=== PATIENT | female | born 1980 | race African-American/Black ===

== ENCOUNTER 2018-06-29 17:08 | Emergency (ER) | payer MEDICAID ==
[~2018-06-29] VITALS: Ht 167.6 cm; Wt 91.0 kg
[2018-06-29 17:21] VITALS: BP 122/74
== END 2018-06-30 | disposition left against medical advice (07) ==
LOC: ER 17:08
DX: R07.9 Chest pain, unspecified (principal); R10.13 Epigastric pain; Z53.21 Procedure and treatment not carried out due to patient leaving prior to being seen by health care provider

== ENCOUNTER 2019-11-23 19:13 | Emergency (ER) | payer MEDICAID ==
[~2019-11-23] VITALS: Ht 167.6 cm; Wt 95.0 kg
[2019-11-23] MEDS ORDERED: KETOROLAC 30MG/ML VIAL IM ONE (20:00)
[2019-11-23 21:14] VITALS: BP 119/68
== END 2019-11-23 21:15 | disposition home or self-care (01) ==
LOC: ER 19:13
DX: M54.6 Pain in thoracic spine (principal); V49.49XA Driver injured in collision with other motor vehicles in traffic accident, initial encounter; Y93.89 Activity, other specified; Y92.89 Other specified places as the place of occurrence of the external cause; Y99.8 Other external cause status
CPT/HCPCS: 96372; 99283; J1885